=== PATIENT | male | born 1955 | race Caucasian/White ===

== ENCOUNTER 2023-11-20 06:29 | Day surgery (SDC) | payer OTHER, SELFPAY ==
[2023-11-20] VITALS (7 sets, daily range): BP systolic 115–150; BP diastolic 68–99; BMI 27.5
[2023-11-20] MEDS: NEOMYCIN ENEMA 1 BOTTLE RECTAL (15:05)
[2023-11-20] MEDS: NORMOSOL-R 1000 IV (15:06)
--- NOTE | 2023-11-20 17:08 | SUR.PHASEI ---
Rec'd sleepy with HOb elevated low fowlers, oriented x3 by RN, reassured repositioned, gustavo well
--- NOTE | 2023-11-20 17:32 | SUR.PHASEI ---
Alert, awake, awaiting SDS
[2023-11-20] MEDS: ZOFRAN 4 MG IV (17:50)
== END 2023-11-20 18:25 | disposition home or self-care (01) ==
LOC: SDS 06:29
PROVIDERS: ATTENDING PHYSICIAN Specialist
DX: R97.20 Elevated prostate specific antigen [PSA] (principal)
CPT/HCPCS: 55700; 76998; 88305; 88344

== ENCOUNTER → 2024-01-31 13:17 | Outpatient (REF) | payer OTHER, SELFPAY | LOC: MRI 3T 13:17 | PROVIDERS: ATTENDING PHYSICIAN Specialist; FAMILY PHYSICIAN Family Medicine | DX: C61 Malignant neoplasm of prostate (principal) | CPT/HCPCS: 72197; A9575 ==

== ENCOUNTER 2024-10-14 06:21 | Day surgery (SDC) | payer OTHER, SELFPAY ==
[2024-10-14 11:56] VITALS: BMI 27.7
[2024-10-14 11:57] VITALS: BMI 27.7
[2024-10-14 11:59] VITALS: BP 139/92
[2024-10-14] MEDS: NEOMYCIN ENEMA 1 BOTTLE RECTAL (12:03)
[2024-10-14] MEDS: NORMOSOL-R/PLASMALYTE-A 1000 IV (12:03)
[2024-10-14 14:20] VITALS: BP 112/64
[2024-10-14 14:30] VITALS: BP 121/77
[2024-10-14 14:45] VITALS: BP 126/69
[2024-10-14 15:02] VITALS: BP 156/96
[2024-10-14] MEDS: ROXICODONE 5 MG PO (15:06)
[2024-10-14 15:15] VITALS: BP 149/98
== END 2024-10-14 15:25 | disposition home or self-care (01) ==
LOC: SDS 06:21
PROVIDERS: ATTENDING PHYSICIAN Specialist; FAMILY PHYSICIAN Family Medicine
DX: C61 Malignant neoplasm of prostate (principal)
CPT/HCPCS: 55700; 76998; 88305; 88344; J1580